=== PATIENT | male | born 1980 | race Caucasian/White ===

== ENCOUNTER 2022-06-14 12:45 | Outpatient (CLI) | payer OTHER, SELFPAY ==
--- NOTE | ~2022-06-14 | CT_ITS ---
EXAMINATION: CT diagnostic chest wo con DATE: 06/14/2022 13:07 INDICATION: Aortic root dilatation TECHNIQUE: Computed tomography (CT) of the chest was performed without intravenous contrast. The dose -length product (DLP) was 451.44 mGy-cm. Automated exposure control and iterative reconstruction tech nique were employed. COMPARISON: None FINDINGS: The maximum diameter of the ascending aorta is 4.0 cm at the aortic root. There is a cluste r of calcified and noncalcified nodules of the right middle lobe, likely old granulomatous disease. T here are minimal groundglass and bandlike airspace opacities of the right lower lobe. No pleural effu monika or pneumothorax. No pathologically enlarged thoracic lymph nodes are identified. The heart size is normal. IMPRESSION: 1. Borderline dilation of the aortic root measuring 4.0 cm. 2. Airspace opacities of the right lower lobe, likely infectious or inflammatory. Reviewed, dictated and finalized at location [facility] IMPRESSION: 1. Borderline dilation of the aortic root measuring 4.0 cm. 2. Airspace opacities of the right lower lobe, likely infectious or inflammator y.
== END 2022-06-14 12:46 | disposition home or self-care (01) ==
PROVIDERS: Visit Provider Internal Medicine Cardiovascular Disease
DX: I77.810 Thoracic aortic ectasia (principal); R91.8 Other nonspecific abnormal finding of lung field
CPT/HCPCS: 71250